=== PATIENT | female | born 1945 | race Caucasian/White ===

== ENCOUNTER 2024-06-17 10:41 | Outpatient (CLI) | payer MEDICARE, OTHER, SELFPAY ==
--- NOTE | 2024-06-17 11:00 | CRLHL7_ITS ---
For Patients: As a result of the Century Cures Act, medical imaging exams and procedure reports are released immediately into your electronic medical record. You may view this report before your referring provider. If you have questions, please contact your health care provider. Indication: MALIGNANT NEOPLASM OF BRONCHUS Technique: Routine noncontrast CT chest Please note that all CT scans at this facility use dose modulation, iterative reconstruction, and/or weight-based dosing when appropriate to reduce radiation dose to as low as reasonably achievable. Comparison: 02/08/2024, 12/21/2023, 04/07/2023 Findings: 14 x 9 millimeter nodule in the periphery of the left upper lobe is not significantly changed. Nodule in the superior segment of the right lower lobe measuring 6 millimeters is also similar. A small subpleural densities along the right lower lobe are unchanged. Scarring along the posterior aspect of the right upper lobe. No pleural effusion, infiltrate, edema or pneumothorax. Atherosclerotic changes and old granulomatous disease with calcified lymph nodes. No enlarged intrathoracic lymph nodes are present. No thyroid nodule. Breast tissue appears normal. No destructive osseous lesion. 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 Underlying emphysema. Calcified splenic granulomas. Hiatal hernia. No adrenal nodule. Chronic calcified granuloma left upper lobe. Impression: No significant interval change since the most recent study with unchanged 1.4 cm nodule in the periphery of the left upper lobe. Please note that all CT scans at this facility use dose modulation, iterative reconstruction, and/or weight-based dosing when appropriate to reduce radiation dose to as low as reasonably achievable. Dictated by Federico Stuart MD @ 06/17/2024 12:13:57 PM (Electronically Signed)
== END 2024-06-17 10:42 | disposition home or self-care (01) ==
LOC: CT 10:46
PROVIDERS: PCP Radiology Radiation Oncology; Visit Provider Radiology Radiation Oncology
DX: C34.90 Malignant neoplasm of unspecified part of unspecified bronchus or lung (principal)
CPT/HCPCS: 71250